=== PATIENT | male | born 1975 | race Caucasian/White ===

== ENCOUNTER → 2016-12-04 | Outpatient (CLI) | payer BC ==
[2016-12-04 08:36] LABS: CHLORIDE,CL 109 mmol/L (98-110); SODIUM,NA 143 mmol/L (136-146)
== END ==
LOC: MW.CHIM 07:39
PROVIDERS: ATTEND Internal Medicine
DX: K85.90 Acute pancreatitis without necrosis or infection, unspecified (principal)
CPT/HCPCS: 36415; 80053; 82150

== ENCOUNTER 2017-04-08 20:27 | Emergency (ER) | payer BC ==
[2017-04-08] MEDS ORDERED: Sodium Chloride 0.9% 2.5 ML Syringe FLUSH PRN (20:38)
[2017-04-08] MEDS ORDERED: Sodium Chloride 0.9% 10 ML Syringe FLUSH PRN (20:38)
[2017-04-08] MEDS ORDERED: Sodium Chloride 0.9% 1,000 ML IV ONE (20:39)
--- NOTE | 2017-04-08 20:41 | EDM.PDOC ---
ED HPI GENERAL MEDICAL PROBLEM - General Chief Complaint: General Stated Complaint: HEADACHE Time Seen by Provider: 04/08/17 20:40 Source of Information: Reports: Patient, Family History Limitations: Reports: No Limitations - History of Present Illness INITIAL COMMENTS - FREE TEXT/NARRATIVE: HISTORY AND PHYSICAL: []41-year-old male presenting with history of headache for the last week it has been intermittent History of Present Illness: [Patient started with headache 1 week ago was better for a couple of days now gradually has worsened over the last several days Complains of pain jumping from his neck to his shoulders to 4 head He has photophobia Rating his pain 7/10] is stating patient has been working 18-20 hours daily for the last 3 weeks. He has been highly stressed. Review of Systems: As per history of present illness and below otherwise all systems reviewed and negative. Past medical history: As per history of present illness and as reviewed below otherwise noncontributory. Surgical history: As per history of present illness and as reviewed below otherwise noncontributory. Social history: No reported history of drug or alcohol abuse. Family history: As per history of present illness and as reviewed below otherwise noncontributory. Physical exam: Alert and oriented male looks to be in distress. Answers questions in full sentences. Appropriate responses were noted to questions. HEENT: Atraumatic, normocehpalic, pupils reactive, negative for conjunctival pallor or scleral icterus, mucous membranes moist, throat clear, neck supple, nontender, trachea midline. Sclerae erythematous. Lungs: Clear to auscultation, breath sounds equal bilaterally, chest non tender. Heart: S1S2, regular, negative for clicks, rubs, or JVD. Abdomen: Soft, nondistended, nontender. Negative for masses or hepatossplenmegaly. Negative for costovertebral tenderness. Pelvis: Stable nontender. Genitourinary: Deferred. Rectal: Deferred Extremities: Atraumatic, negative for cords or calf pain. Neurovascular unremarkable. Neuro: Awake, alert, oriented. Cranial nerves II through XII unremarkable. Cerebellum unremarkable. Motor and sensory unremarkable throughout. Exam nonfocal. Diagnostics: [CBC CMP head CT UA amylase lipase lactic acid urine drug screen TSH] Therapeutics: [] Impression: []muscle contraction headaches stress Plan: [Home and rest Note for work to stay home until .] Definitive disposition and diagnosis as appropriate pending reevaluation and review of above. Onset: Gradual Duration: Week(s): (1) Location: Reports: Head Quality: Reports: Ache Severity: Severe Improves with: Reports: None Worsens with: Reports: Other (Working long hours) Associated Symptoms: Reports: No Other Symptoms Treatments [employer]PER[employer]OR: Reports: Other (see below) (Ibuprofen yesterday) headache Pain Score (Numeric/FACES): 6 - Related Data Allergies Allergy/AdvReac Type Severity Reaction Status Date / Time No Known Allergies Allergy Verified 04/08/17 20:31 Home Meds: Home Meds . [No Known Home Meds] 10/02/16 [History] Past Medical History - Past Health History Medical/Surgical History: Denies Medical/Surgical History Respiratory History: Reports: Sleep Apnea Other Respiratory History: uses CPAP Gastrointestinal History: Reports: Pancreatitis Musculoskeletal History: Reports: Arthritis - Past Surgical History GI Surgical History: Reports: Hernia, Inguinal Social & Family History - Family History Family Medical History: Noncontributory - Tobacco Use Smoking Status *Q: Former Smoker Years of Tobacco use: 10 Used Tobacco, but Quit: No Second Hand Smoke Exposure: Yes - Caffeine Use Caffeine Use: Reports: Coffee, Soda, Tea - Alcohol Use Days Per Week of Alcohol Use: 2 Number of Drinks Per Day: 4 Total Drinks Per Week: 8 - Recreational Drug Use Recreational Drug Use: No ED ROS GENERAL - Review of Systems Review Of Systems: ROS reveals no pertinent complaints other than HPI. ED EXAM, GENERAL - Physical Exam Exam: See Below (see dictation) Course - Vital Signs Last Recorded V/S: Last Vital Signs Temp 37.1 C 04/08/17 20:32 Pulse 84 04/08/17 21:08 Resp 17 04/08/17 21:08 BP 136/75 04/08/17 21:08 Pulse Ox 94 L 04/08/17 21:08 - Orders/Labs/Meds Orders: Active Orders 24 hr Category Date Time Status Blood Glucose Check, Bedside [RC] ONETIME Care 04/08/17 20:41 Active Head wo Cont [CT] Stat Exams 04/08/17 20:39 Taken DRUG SCREEN, URINE [URCHEM] Stat Lab 04/08/17 20:39 Uncollected Sodium Chloride 0.9% [Saline Flush] Med 04/08/17 20:38 Active 10 ml FLUSH ASDIRECTED PRN Sodium Chloride 0.9% [Saline Flush] Med 04/08/17 20:38 Active 2.5 ml FLUSH ASDIRECTED PRN Saline Lock Insert [OM.PC] Stat Oth 04/08/17 20:38 Ordered Medication Orders Sodium Chloride (Saline Flush) 10 ml FLUSH ASDIRECTED PRN PRN Reason: Keep Vein Open Last Admin: 04/08/17 21:05 Dose: 10 ml Sodium Chloride (Saline Flush) 2.5 ml FLUSH ASDIRECTED PRN PRN Reason: Keep Vein Open Last Admin: 04/08/17 21:06 Dose: 2.5 ml Labs: Laboratory Tests 04/08/17 04/08/17 04/08/17 Range/Units 20:44 20:44 20:44 WBC 5.26 (4.0-11.0) K/uL RBC 5.17 (4.50-5.90) M/uL Hgb 14.7 (13.0-17.0) g/dL Hct 42.9 (38.0-50.0) % MCV 83.0 (80.0-98.0) fL MCH 28.4 (27.0-32.0) pg MCHC 34.3 (31.0-37.0) g/dL RDW Std Deviation 40.1 (28.0-62.0) fl RDW Coeff of Aram 13 (11.0-15.0) % Plt Count 225 (150-400) K/uL MPV 9.60 (7.40-12.00) fL Neut % (Auto) 37.7 L (48.0-80.0) % Lymph % (Auto) 47.5 H (16.0-40.0) % [place] % (Auto) 10.6 (0.0-15.0) % Eos % (Auto) 3.4 (0.0-7.0) % Baso % (Auto) 0.8 (0.0-1.5) % Neut # (Auto) 2.0 (1.4-5.7) K/uL Lymph # (Auto) 2.5 H (0.6-2.4) K/uL [place] # (Auto) 0.6 (0.0-0.8) K/uL Eos # (Auto) 0.2 (0.0-0.7) K/uL Baso # (Auto) 0.0 (0.0-0.1) K/uL Nucleated RBC % 0.0 /100WBC Nucleated RBCs # 0 K/uL Lactate 1.0 (0.20-2.00) mmol/L Sodium 143 (136-146) mmol/L Potassium 4.0 (3.5-5.1) mmol/L Chloride 108 (98-110) mmol/L Carbon Dioxide 28 (21-31) mmol/L BUN 20 (6.0-23.0) mg/dL Creatinine 0.9 (0.6-1.5) mg/dL Est Cr Clr Drug Dosing 132.61 mL/min Estimated GFR (MDRD) > 60.0 ml/min Glucose 109 (60-110) mg/dL POC Glucose (60-110) mg/dL Calcium 9.0 (8.8-10.8) mg/dL Total Bilirubin 0.5 (0.1-1.5) mg/dL AST 22 (5-40) IU/L ALT 55 H (8-54) IU/L Alkaline Phosphatase 52 (40-150) Total Protein 7.0 (6.0-8.0) g/dL Albumin 4.1 (3.5-5.0) g/dL Globulin 2.9 (2.0-3.5) g/dL Albumin/Globulin Ratio 1.4 (1.3-2.8) Amylase (10-90) U/L Lipase (7-80) U/L TSH 3rd Generation 1.11 (0.47-5.0) uIU/mL 04/08/17 04/08/17 Range/Units 20:44 20:44 WBC (4.0-11.0) K/uL RBC (4.50-5.90) M/uL Hgb (13.0-17.0) g/dL Hct (38.0-50.0) % MCV (80.0-98.0) fL MCH (27.0-32.0) pg MCHC (31.0-37.0) g/dL RDW Std Deviation (28.0-62.0) fl RDW Coeff of Aram (11.0-15.0) % Plt Count (150-400) K/uL MPV (7.40-12.00) fL Neut % (Auto) (48.0-80.0) % Lymph % (Auto) (16.0-40.0) % Cand[place] % (Auto) (0.0-15.0) % Eos % (Auto) (0.0-7.0) % Baso % (Auto) (0.0-1.5) % Neut # (Auto) (1.4-5.7) K/uL Lymph # (Auto) (0.6-2.4) K/uL [place] # (Auto) (0.0-0.8) K/uL Eos # (Auto) (0.0-0.7) K/uL Baso # (Auto) (0.0-0.1) K/uL Nucleated RBC % /100WBC Nucleated RBCs # K/uL Lactate (0.20-2.00) mmol/L Sodium (136-146) mmol/L Potassium (3.5-5.1) mmol/L Chloride (98-110) mmol/L Carbon Dioxide (21-31) mmol/L BUN (6.0-23.0) mg/dL Creatinine (0.6-1.5) mg/dL Est Cr Clr Drug Dosing mL/min Estimated GFR (MDRD) ml/min Glucose (60-110) mg/dL POC Glucose 102 (60-110) mg/dL Calcium (8.8-10.8) mg/dL Total Bilirubin (0.1-1.5) mg/dL AST (5-40) IU/L ALT (8-54) IU/L Alkaline Phosphatase (40-150) Total Protein (6.0-8.0) g/dL Albumin (3.5-5.0) g/dL Globulin (2.0-3.5) g/dL Albumin/Globulin Ratio (1.3-2.8) Amylase 90 (10-90) U/L Lipase 79 (7-80) U/L TSH 3rd Generation (0.47-5.0) uIU/mL Meds: Medications Generic Name Dose Route Start Last Admin Trade Name Freq PRN Reason Stop Dose Admin Sodium Chloride 10 ml 04/08/17 20:38 04/08/17 21:05 Saline Flush FLUSH 10 ml ASDIRECTED PRN Administration Keep Vein Open Sodium Chloride 2.5 ml 04/08/17 20:38 04/08/17 21:06 Saline Flush FLUSH 2.5 ml ASDIRECTED PRN Administration Keep Vein Open Discontinued Medications Generic Name Dose Route Start Last Admin Trade Name Juan PRN Reason Stop Dose Admin Al Hydroxide/Mg Hydroxide 15 0 ml 04/08/17 21:26 04/08/17 21:29 ml/ Metoclopramide HCl 5 mg/ PO 04/08/17 21:27 25 each Lidocaine HCl 5 ml ONETIME ONE Administration Sodium Chloride 1,000 mls @ 999 mls/hr 04/08/17 20:39 04/08/17 21:03 Normal Saline IV 04/08/17 21:39 999 mls/hr STAT ONE Administration Morphine Sulfate 2 mg 04/08/17 20:50 04/08/17 21:05 Morphine IV 04/08/17 20:51 2 mg ONETIME ONE Administration Ondansetron HCl 4 mg 04/08/17 20:50 04/08/17 21:04 Zofran IVPUSH 04/08/17 20:51 4 mg ONETIME ONE Administration Departure - Departure Time of Disposition: 21:53 Disposition: Home, Self-Care 01 Condition: Good Clinical Impression: Muscle contraction headache - Discharge Information Forms: ED Department Discharge Additional Instructions: The following information is given to patients seen in the emergency department who are being discharged to home. This information is to outline your options for follow-up care. We provide all patients seen in our emergency department with a follow-up referral. The need for follow-up, as well as the timing and circumstances, are variable depending upon the specifics of your emergency department visit. If you don't have a primary care physician on staff, we will provide you with a referral. We always advise you to contact your personal physician following an emergency department visit to inform them of the circumstance of the visit and for follow-up with them and/or the need for any referrals to a consulting specialist. The emergency department will also refer you to a specialist when appropriate. This referral assures that you have the opportunity for followup care with a specialist. All of these measure are taken in an effort to provide you with optimal care, which includes your followup. Under all circumstances we always encourage you to contact your private physician who remains a resource for coordinating your care. When calling for followup care, please make the office aware that this follow-up is from your recent emergency room visit. If for any reason you are refused follow-up, please contact the [facility] emergency department at and asked to speak to the emergency department charge nurse. Home and rest A work note has been signed to be off work until the - My Orders Last 24 Hours: My Active Orders 04/08/17 20:38 Sodium Chloride 0.9% [Saline Flush] 10 ml FLUSH ASDIRECTED PRN Sodium Chloride 0.9% [Saline Flush] 2.5 ml FLUSH ASDIRECTED PRN Saline Lock Insert [OM.PC] Stat 04/08/17 20:39 Head wo Cont [CT] Stat DRUG SCREEN, URINE [URCHEM] Stat 04/08/17 20:41 Blood Glucose Check, Bedside [RC] ONETIME - Assessment/Plan Last 24 Hours: My Active Orders 04/08/17 20:38 Sodium Chloride 0.9% [Saline Flush] 10 ml FLUSH ASDIRECTED PRN Sodium Chloride 0.9% [Saline Flush] 2.5 ml FLUSH ASDIRECTED PRN Saline Lock Insert [OM.PC] Stat 04/08/17 20:39 Head wo Cont [CT] Stat DRUG SCREEN, URINE [URCHEM] Stat 04/08/17 20:41 Blood Glucose Check, Bedside [RC] ONETIME
[2017-04-08] MEDS ORDERED: Ondansetron 4 MG/2 ML SDV IVPUSH ONE (20:50)
[2017-04-08] MEDS ORDERED: Morphine 10 MG/ML Syringe IV ONE (20:50)
[2017-04-08 21:14] LABS: CHLORIDE,CL 108 mmol/L (98-110); SODIUM,NA 143 mmol/L (136-146)
[2017-04-08] MEDS ORDERED: Alum Hydrox/Mag Hydrox/Simeth 15 ML, Metoclopramide 5 MG, Lidocaine 2% 5 ML PO ONE ×3 (21:26)
[2017-04-08 22:13] VITALS: BP 124/70
--- NOTE | 2017-04-09 13:10 | CT ---
EXAM DATE: 04/08/17 PATIENT'S AGE: 41 Patient: LACHO MCKENNA Facility: [place], [place] Site . Site : [id number] Study: CT Head WO CONT [id number]/[id number] 9:08:02 PM Ordering Physician: Doctor Hernandez Final Report: HISTORY: Headache for 3 days. TECHNIQUE: The head was scanned in the axial plane at 3 mm intervals without IV contrast. Reconstructed bone windows obtained as well as sagittal and coronal reconstructions. FINDINGS: The visualized paranasal sinuses and mastoid air cells are well aerated. The calvarium is intact. The ventricles and sulci are normal size, shape and position. No intra-axial mass, edema or midline shift is identified. No extra- axial fluid collections are seen. Pineda-white differentiation is preserved. IMPRESSION: No acute intracranial pathology or bleed. Dictated by Nanci Wright MD @ 04/08/2017 9:50:09 PM Dictated by: Nanci Wright MD @ 04/08/2017 21:50:13 (Electronic Signature) Report Signed by Proxy. [facility]
== END 2017-04-08 22:10 | disposition home or self-care (01) ==
LOC: MW.ED 20:27
DX: G44.209 Tension-type headache, unspecified, not intractable (principal); Z87.891 Personal history of nicotine dependence
CPT/HCPCS: 36415; 70450; 80053; 82150; 82962; 83605; 83690; 84443; 85025; 96361; 96374; 96375; 99284; A9270; J2270; J2405; J7040

== ENCOUNTER 2021-04-17 17:46 | Emergency (ER) | payer MEDICAID ==
[2021-04-17] MEDS ORDERED: Alum Hydrox/Mag Hydrox/Simeth 15 ML, Lidocaine 2% 5 ML PO ONE ×2 (17:53)
--- NOTE | 2021-04-17 17:57 | EDM.PDOC ---
ED HPI GENERAL MEDICAL PROBLEM - General Chief Complaint: Chest Pain Stated Complaint: CHEST PAIN Time Seen by Provider: 04/17/21 17:52 - History of Present Illness INITIAL COMMENTS - FREE TEXT/NARRATIVE: 46-year male presents to the emergency department complaining of chest pain and abdominal pain starting about 30 minutes prior to arrival. Patient states that he had some food including cottage cheese and then started having the significant pain. The pain is in his stomach and a burning type sensation and goes to his chest. He states he was diaphoretic and short of breath as well. Patient states he has had the symptoms perhaps 4 times in the past over the last several weeks. Patient denies any fevers or chills. Patient with 2 episodes of vomiting. No diarrhea. Patient denies known lactose intolerance. Patient states that last stress test was 2016 and normal. Pain is worse when he takes a deep breath in. There is no history of blood clots. No unilateral leg swelling. No recent travel or injury or cancer or surgery. No known exacerbating relieving factors of this moderate to severe pain. Patient did receive Zofran and fentanyl by EMS chest/abdomen Pain Score (Numeric/FACES): 6 - Related Data Allergies Allergy/AdvReac Type Severity Reaction Status Date / Time No Known Allergies Allergy Verified 04/17/21 17:49 Home Meds: Home Meds metFORMIN [Glucophage XR] 1,000 mg PO BID 04/17/21 [History] Past Medical History - Past Health History Medical/Surgical History: Denies Medical/Surgical History HEENT History: Reports: None Cardiovascular History: Reports: None Respiratory History: Reports: Sleep Apnea Other Respiratory History: uses CPAP Gastrointestinal History: Reports: Pancreatitis Genitourinary History: Reports: None Musculoskeletal History: Reports: Arthritis Neurological History: Reports: None Psychiatric History: Reports: None Endocrine/Metabolic History: Reports: None Hematologic History: Reports: None Immunologic History: Reports: None Oncologic (Cancer) History: Reports: None Dermatologic History: Reports: None - Infectious Disease History Infectious Disease History: Reports: None - Past Surgical History Head Surgeries/Procedures: Reports: None HEENT Surgical History: Reports: None Cardiovascular Surgical History: Reports: None Respiratory Surgical History: Reports: None GI Surgical History: Reports: Hernia, Inguinal Male Surgical History: Reports: None Endocrine Surgical History: Reports: None Neurological Surgical History: Reports: None Musculoskeletal Surgical History: Reports: None Oncologic Surgical History: Reports: None Dermatological Surgical History: Reports: None Social & Family History - Family History Family Medical History: No Pertinent Family History - Tobacco Use Tobacco Use Status *Q: Never Tobacco User Second Hand Smoke Exposure: No - Caffeine Use Caffeine Use: Reports: None - Recreational Drug Use Recreational Drug Use: No ED ROS GENERAL - Review of Systems Review Of Systems: Comprehensive ROS is negative, except as noted in HPI. Free Text/Narrative/Comment: Constitutional: No fevers, chills, Respiratory: No productive sputum cough Cardiovascular: + Chest pain, Gastrointestinal: diarrhea Genitourinary: No pain with urination. No frequency Rey/Lymph: Negative for bruising tendency, Musculoskeletal: no decreased range of motion, trauma Integumentary: No rash, bruising Neurologic: No numbness or weakness Psychiatric: No anxiety, depression ED EXAM, GENERAL - Physical Exam Exam: See Below Free Text/Narrative:: CONSTITUTIONAL: well appearing in no acute distress SKIN: Warm, dry, and intact without rash HENT: Normocephalic, atraumatic, PULMONARY: clear to ausculation bilaterally. No rales, rhonchi, wheezing CARDIOVASCULAR: regular rate, No murmur, rubs, or gallops GASTROINTESTINAL: Diffuse mild tenderness. No guarding or rebound or rigidity NEUROLOGIC: normal speech, II-XII intact. light touch/5/5 power equal and symmetric in upper and lower extremities without deficit. GCSL 15 MUSCULOSKELETAL: no gross deformities, atraumatic PSYCHIATRIC: normal mood and affect #1 Interpretation EKG Date: 04/17/21 Time: 18:00 EKG Interpretation Comments: 68, normal sinus rhythm, Q-wave in lead III, nonspecific ST/T findings. #2 Interpretation EKG Date: 04/17/21 (n) EKG Interpretation Comments: Wavy baseline. 80, normal sinus rhythm, precordial leads with nonspecific ST/T findings Course - Vital Signs Text/Narrative:: Patient presents to the emergency department as outlined above. Patient has evidence of acute pancreatitis. Is also elevation in LFTs. Patient does not drink alcohol and had similar presentation in the past for which his gallbladder had already been taken out. Patient could certainly have a stricture or retained stone and may need ERCP. At minimum he needs GI consultation and continue treatment and work-up. We do not have GI here and the patient be transferred for higher level of care. Upon obtaining laboratory testing the tra nsfer was initiated. I do not want to delay transfer with imaging and any require imaging to be done when the patient's gets to the accepting facility. Patient otherwise looks much better after IV fluids and antibiotics and pain medications and at this has a soft abdomen without signs of surgical abdomen Last Recorded V/S: Last Vital Signs Temp 36.1 C 04/17/21 17:47 Pulse 82 04/17/21 20:04 Resp 16 04/17/21 20:04 BP 117/83 04/17/21 20:04 Pulse Ox 97 04/17/21 20:04 - Orders/Labs/Meds Orders: Active Orders 24 hr Category Date Time Status EKG 12 Lead [EKG Documentation Completion] [RC] STAT Care 04/17/21 17:53 Active EKG 12 Lead [EKG Documentation Completion] [RC] STAT Care 04/17/21 18:34 Active Labs: Laboratory Tests 04/17/21 04/17/21 04/17/21 Range/Units 17:40 17:40 17:40 WBC 3.88 L (4.0-11.0) K/uL RBC 5.40 (4.50-5.90) M/uL Hgb 15.7 (13.0-17.0) g/dL Hct 46.0 (38.0-50.0) % MCV 85.2 (80.0-98.0) fL MCH 29.1 (27.0-32.0) pg MCHC 34.1 (31.0-37.0) g/dL RDW Std Deviation 39.2 (28.0-62.0) fl RDW Coeff of Aram 13 (11.0-15.0) % Plt Count 224 (150-400) K/uL MPV 9.90 (7.40-12.00) fL Neut % (Auto) 54.1 (48.0-80.0) % Lymph % (Auto) 29.9 (16.0-40.0) % Ashley % (Auto) 14.4 (0.0-15.0) % Eos % (Auto) 1.3 (0.0-7.0) % Baso % (Auto) 0.3 (0.0-1.5) % Neut # (Auto) 2.1 (1.4-5.7) K/uL Lymph # (Auto) 1.2 (0.6-2.4) K/uL Ashley # (Auto) 0.6 (0.0-0.8) K/uL Eos # (Auto) 0.1 (0.0-0.7) K/uL Baso # (Auto) 0.0 (0.0-0.1) K/uL Nucleated RBC % 0.0 /100WBC Nucleated RBCs # 0 K/uL D-Dimer, Quantitative 0.74 H (0.0-0.50) mg/L FEU Sodium 139 (136-148) mmol/L Potassium 4.1 (3.5-5.1) mmol/L Chloride 101 (98-107) mmol/L Carbon Dioxide 30.6 (21.0-32.0) mmol/L BUN 15 (7.0-18.0) mg/dL Creatinine 1.0 (0.8-1.3) mg/dL Est Cr Clr Drug Dosing 113.32 mL/min Estimated GFR (MDRD) > 60.0 ml/min Glucose 171 H (74-106) mg/dL Calcium 9.3 (8.5-10.1) mg/dL Total Bilirubin 1.1 H (0.2-1.0) mg/dL AST 687 H (15-37) IU/L ALT 1133 H (14-63) IU/L Alkaline Phosphatase 118 H (46-116) U/L Troponin I < 0.050 (0.000-0.056) ng/mL Total Protein 7.4 (6.4-8.2) g/dL Albumin 4.3 (3.4-5.0) g/dL Globulin 3.1 (2.6-4.0) g/dL Albumin/Globulin Ratio 1.4 (0.9-1.6) Lipase 10998 H (73-393) U/L Urine Color Urine Appearance Urine pH (5.0-8.0) Ur Specific [place] (1.001-1.035) Urine Protein (NEGATIVE) mg/dL Urine Glucose (UA) (NEGATIVE) mg/dL Urine Ketones (NEGATIVE) mg/dL Urine Occult Blood (NEGATIVE) Urine Nitrite (NEGATIVE) Urine Bilirubin (NEGATIVE) Urine Urobilinogen (<2.0) EU/dL Ur Leukocyte Esterase (NEGATIVE) Urine RBC (0-2/HPF) Urine WBC (0-5/HPF) Ur Epithelial Cells (NONE-FEW) Amorphous Sediment (NEGATIVE) Urine Bacteria (NEGATIVE) Urine Mucus (NONE-MOD) 04/17/21 Range/Units 18:35 WBC (4.0-11.0) K/uL RBC (4.50-5.90) M/uL Hgb (13.0-17.0) g/dL Hct (38.0-50.0) % MCV (80.0-98.0) fL MCH (27.0-32.0) pg MCHC (31.0-37.0) g/dL RDW Std Deviation (28.0-62.0) fl RDW Coeff of Aram (11.0-15.0) % Plt Count (150-400) K/uL MPV (7.40-12.00) fL Neut % (Auto) (48.0-80.0) % Lymph % (Auto) (16.0-40.0) % Ashley % (Auto) (0.0-15.0) % Eos % (Auto) (0.0-7.0) % Baso % (Auto) (0.0-1.5) % Neut # (Auto) (1.4-5.7) K/uL Lymph # (Auto) (0.6-2.4) K/uL Ashley # (Auto) (0.0-0.8) K/uL Eos # (Auto) (0.0-0.7) K/uL Baso # (Auto) (0.0-0.1) K/uL Nucleated RBC % /100WBC Nucleated RBCs # K/uL D-Dimer, Quantitative (0.0-0.50) mg/L FEU Sodium (136-148) mmol/L Potassium (3.5-5.1) mmol/L Chloride (98-107) mmol/L Carbon Dioxide (21.0-32.0) mmol/L BUN (7.0-18.0) mg/dL Creatinine (0.8-1.3) mg/dL Est Cr Clr Drug Dosing mL/min Estimated GFR (MDRD) ml/min Glucose (74-106) mg/dL Calcium (8.5-10.1) mg/dL Total Bilirubin (0.2-1.0) mg/dL AST (15-37) IU/L ALT (14-63) IU/L Alkaline Phosphatase (46-116) U/L Troponin I (0.000-0.056) ng/mL Total Protein (6.4-8.2) g/dL Albumin (3.4-5.0) g/dL Globulin (2.6-4.0) g/dL Albumin/Globulin Ratio (0.9-1.6) Lipase (73-393) U/L Urine Color YELLOW Urine Appearance CLOUDY Urine pH 7.5 (5.0-8.0) Ur Specific [place] 1.020 (1.001-1.035) Urine Protein TRACE H (NEGATIVE) mg/dL Urine Glucose (UA) NEGATIVE (NEGATIVE) mg/dL Urine Ketones NEGATIVE (NEGATIVE) mg/dL Urine Occult Blood NEGATIVE (NEGATIVE) Urine Nitrite NEGATIVE (NEGATIVE) Urine Bilirubin NEGATIVE (NEGATIVE) Urine Urobilinogen 1.0 (<2.0) EU/dL Ur Leukocyte Esterase NEGATIVE (NEGATIVE) Urine RBC NONE SEEN (0-2/HPF) Urine WBC 0-1 (0-5/HPF) Ur Epithelial Cells RARE (NONE-FEW) Amorphous Sediment LIGHT (NEGATIVE) Urine Bacteria 2+ H (NEGATIVE) Urine Mucus LIGHT (NONE-MOD) Meds: Medications Discontinued Medications Generic Name Dose Route Start Last Admin Trade Name Freq PRN Reason Stop Dose Admin Al Hydroxide/Mg Hydroxide 15 0 ml 04/17/21 17:53 04/17/21 18:05 ml/ Lidocaine HCl 5 ml PO 04/17/21 17:54 1 each ONETIME ONE Administration Fentanyl 50 mcg 04/17/21 18:34 04/17/21 18:40 Fentanyl 50 Mcg/Ml Sdv IVPUSH 04/17/21 18:35 50 mcg ONETIME ONE Administration Sodium Chloride 1,000 mls @ 1,000 mls/min 04/17/21 18:38 04/17/21 18:40 Normal Saline IV 04/17/21 18:39 1,000 mls/min .Bolus ONE Administration Piperacillin Sod/Tazobactam 50 mls @ 100 mls/hr 04/17/21 18:58 04/17/21 19:13 Sod 3.375 gm/ Sodium Chloride IV 04/17/21 19:27 100 mls/hr ONETIME ONE Administration Metoclopramide HCl 10 mg 04/17/21 18:39 04/17/21 18:42 Metoclopramide 10 Mg/2 Ml Sdv IVPUSH 04/17/21 18:40 10 mg ONETIME ONE Administration Sodium Chloride 1,000 ml 04/17/21 18:40 04/17/21 18:43 Sodium Chloride 0.9% 10 Ml Sdv IV 04/17/21 18:41 Not Given NOW STA Departure - Departure Time of Disposition: 20:40 [facility]position: [facility] Condition: Fair Clinical Impression: Acute pancreatitis - Discharge Information Referrals: Alaina Damon MD [Primary Care Provider] - Forms: ED Department Discharge Sepsis Event Note (ED) - Evaluation Sepsis Screening Result: No Definite Risk - Focused Exam Vital Signs: Vital Signs Temp Pulse Resp BP Pulse Ox 04/17/21 20:04 82 16 117/83 97 04/17/21 19:17 72 16 117/73 98 04/17/21 18:34 68 18 161/97 H 98 04/17/21 17:47 36.1 C 66 20 171/98 H 100 - My Orders Last 24 Hours: My Active Orders 04/17/21 17:53 EKG 12 Lead [EKG Documentation Completion] [RC] STAT 04/17/21 18:34 EKG 12 Lead [EKG Documentation Completion] [RC] STAT - Assessment/Plan Last 24 Hours: My Active Orders 04/17/21 17:53 EKG 12 Lead [EKG Documentation Completion] [RC] STAT 04/17/21 18:34 EKG 12 Lead [EKG Documentation Completion] [RC] STAT
[2021-04-17 18:32] LABS: BLOOD UREA NITROGEN,BUN 15 mg/dL (7.0-18.0); CARBON DIOXIDE,CO2 30.6 mmol/L (21.0-32.0); CHLORIDE,CL 101 mmol/L (98-107); GLUCOSE RANDOM 171 mg/dL (74-106); POTASSIUM,K 4.1 mmol/L (3.5-5.1); SODIUM,NA 139 mmol/L (136-148)
[2021-04-17] MEDS ORDERED: fentaNYL 50 MCG/ML SDV IVPUSH ONE (18:34)
[2021-04-17] MEDS ORDERED: Sodium Chloride 0.9% 1,000 ML IV ONE (18:38)
[2021-04-17] MEDS ORDERED: Metoclopramide 10 MG/2 ML SDV IVPUSH ONE (18:39)
[2021-04-17] MEDS ORDERED: Sodium Chloride 0.9% 10 ML SDV IV STA (18:40)
[2021-04-17] MEDS ORDERED: Piperacillin/Tazobactam 3.375 GM in Sodium Chloride 0.9% 50 ML IV ONE (18:58)
[2021-04-17 20:11] LABS: LIPASE 47366 U/L (73-393)
[2021-04-17 21:26] VITALS: BP 130/72; PULSE 84
== END 2021-04-17 21:20 ==
LOC: MW.ED 17:46
DX: K85.90 Acute pancreatitis without necrosis or infection, unspecified (principal)
CPT/HCPCS: 36415; 80053; 81001; 83690; 84484; 85025; 85379; 93005; 96365; 96375; 99285; A9270; J2543; J2765; J3010; J7030

== ENCOUNTER 2021-07-31 12:15 | Observation (INO) | payer MEDICAID ==
[2021-07-31] MEDS ORDERED: Sodium Chloride 0.9% 500 ML IV ONE (12:50)
[2021-07-31] MEDS ORDERED: Sodium Chloride 0.9% 10 ML Syringe FLUSH PRN (12:50)
[2021-07-31] MEDS ORDERED: Sodium Chloride 0.9% 2.5 ML Syringe FLUSH PRN (12:50)
--- NOTE | 2021-07-31 12:57 | EDM.PDOC ---
ED HPI GENERAL MEDICAL PROBLEM - General Chief Complaint: Syncope Stated Complaint: BLACKED OUT Time Seen by Provider: 07/31/21 12:37 - History of Present Illness INITIAL COMMENTS - FREE TEXT/NARRATIVE: Patient presents for syncope. Please patient was playing outside. It was cold out and he had a hoodie on. He was sweating a little bit because of the clothing but otherwise is doing fine. Patient states that next his neighbor was seeing if he was doing okay because he was laying in the grass. Patient denies any premonitory signs or symptoms of chest pain shortness of breath. No recent fevers chills or infectious complaints. Patient son is sick but he is not having symptoms. No vomiting or diarrhea red or black stools. When the patient woke up he said he had a moderate headache. No slurred speech or double vision or arm/leg numbness/weakness. Patient states no history of PE. No leg swelling. No recent travel or injury or cancer or surgery. Patient denies any traumatic injury that occurred during this event today. No sudden in family or history of arrhythmia Headache Pain Score (Numeric/FACES): 8 - Related Data Allergies Allergy/AdvReac Type Severity Reaction Status Date / Time No Known Allergies Allergy Verified 07/31/21 12:24 Home Meds: Home Meds metFORMIN [Glucophage XR] 1,000 mg PO BID 04/17/21 [History] Past Medical History - Past Health History Medical/Surgical History: Denies Medical/Surgical History HEENT History: Reports: Other (See Below) Other HEENT History: wears glasses Cardiovascular History: Reports: None Respiratory History: Reports: Sleep Apnea Other Respiratory History: uses CPAP Gastrointestinal History: Reports: Pancreatitis Genitourinary History: Reports: None Musculoskeletal History: Reports: Arthritis Neurological History: Reports: None Psychiatric History: Reports: None Endocrine/Metabolic History: Reports: None Hematologic History: Reports: None Immunologic History: Reports: None Oncologic (Cancer) History: Reports: None Dermatologic History: Reports: None - Infectious Disease History Infectious Disease History: Reports: None - Past Surgical History Head Surgeries/Procedures: Reports: None HEENT Surgical History: Reports: None Cardiovascular Surgical History: Reports: None Respiratory Surgical History: Reports: None GI Surgical History: Reports: Cholecystectomy, Hernia, Inguinal Male Surgical History: Reports: None Endocrine Surgical History: Reports: None Neurological Surgical History: Reports: None Musculoskeletal Surgical History: Reports: None Oncologic Surgical History: Reports: None Dermatological Surgical History: Reports: None Social & Family History - Family History Family Medical History: No Pertinent Family History - Tobacco Use Tobacco Use Status *Q: Former Tobacco User Used Tobacco, but Quit: Yes Month/Year Tobacco Last Used: 03/2021 - Caffeine Use Caffeine Use: Reports: None - Recreational Drug Use Recreational Drug Use: No ED ROS GENERAL - Review of Systems Review Of Systems: Comprehensive ROS is negative, except as noted in HPI. ED EXAM, GENERAL - Physical Exam Exam: See Below Free Text/Narrative:: CONSTITUTIONAL: well appearing in no acute distress SKIN: Warm, dry, and intact without rash HENT: Normocephalic, atraumatic, PULMONARY: clear to ausculation bilaterally. No rales, rhonchi, wheezing CARDIOVASCULAR: regular rate, No murmur, rubs, or gallops GASTROINTESTINAL: soft, nondistended, nontender NEUROLOGIC: normal speech, II-XII intact. light touch/5/5 power equal and symmetric in upper and lower extremities without deficit MUSCULOSKELETAL: no gross deformities, atraumatic PSYCHIATRIC: normal mood and affect #1 Interpretation Time: 12:30 EKG Interpretation Comments: 67, normal sinus rhythm, nonspecific ST/T changesj. RSR' in V1 and V2 with T wave inversion in V1 Course - Vital Signs Last Recorded V/S: Last Vital Signs Temp 36.6 C 07/31/21 12:25 Pulse 68 07/31/21 12:25 Resp 16 07/31/21 12:25 BP 139/79 07/31/21 12:25 Pulse Ox 96 07/31/21 12:25 - Orders/Labs/Meds Orders: Active Orders 24 hr Category Date Time Status Cardiac Monitoring [RC] . DIRECTED Care 07/31/21 12:50 Active CORONAVIRUS COVID-19 LUCA [MOLEC] Stat Lab 07/31/21 12:50 Ordered Sodium Chloride 0.9% [Saline Flush] Med 07/31/21 12:50 Active 10 ml FLUSH ASDIRECTED PRN Sodium Chloride 0.9% [Saline Flush] Med 07/31/21 12:50 Active 2.5 ml FLUSH ASDIRECTED PRN Saline Lock Insert [OM.PC] Stat Oth 07/31/21 12:50 Ordered Medication Orders Sodium Chloride (Sodium Chloride 0.9% 10 Ml Syringe) 10 ml FLUSH ASDIRECTED PRN PRN Reason: Keep Vein Open Last Admin: 07/31/21 13:17 Dose: 10 ml Documented by: FRED Sodium Chloride (Sodium Chloride 0.9% 2.5 Ml Syringe) 2.5 ml FLUSH ASDIRECTED PRN PRN Reason: Keep Vein Open Last Admin: 07/31/21 13:18 Dose: 2.5 ml Documented by: FRED Labs: Laboratory Tests 07/31/21 07/31/21 07/31/21 Range/Units 12:31 12:44 12:44 WBC 4.63 (4.0-11.0) K/uL RBC 5.39 (4.50-5.90) M/uL Hgb 15.8 (13.0-17.0) g/dL Hct 45.5 (38.0-50.0) % MCV 84.4 (80.0-98.0) fL MCH 29.3 (27.0-32.0) pg MCHC 34.7 (31.0-37.0) g/dL RDW Std Deviation 40.8 (28.0-62.0) fl RDW Coeff of Aram 13 (11.0-15.0) % Plt Count 209 (150-400) K/uL MPV 9.70 (7.40-12.00) fL Neut % (Auto) 38.9 L (48.0-80.0) % Lymph % (Auto) 45.1 H (16.0-40.0) % [place] % (Auto) 13.0 (0.0-15.0) % Eos % (Auto) 2.6 (0.0-7.0) % Baso % (Auto) 0.4 (0.0-1.5) % Neut # (Auto) 1.8 (1.4-5.7) K/uL Lymph # (Auto) 2.1 (0.6-2.4) K/uL [place] # (Auto) 0.6 (0.0-0.8) K/uL Eos # (Auto) 0.1 (0.0-0.7) K/uL Baso # (Auto) 0.0 (0.0-0.1) K/uL Nucleated RBC % 0.0 /100WBC Nucleated RBCs # 0 K/uL INR D-Dimer, Quantitative (0.0-0.50) mg/L FEU Sodium 138 (136-148) mmol/L Potassium 4.3 (3.5-5.1) mmol/L Chloride 103 (98-107) mmol/L Carbon Dioxide 28.1 (21.0-32.0) mmol/L BUN 18 (7.0-18.0) mg/dL Creatinine 0.9 (0.8-1.3) mg/dL Est Cr Clr Drug Dosing 125.91 mL/min Estimated GFR (MDRD) > 60.0 ml/min Glucose 130 H (74-106) mg/dL POC Glucose 127 H (70-99) mg/dL Calcium 8.4 L (8.5-10.1) mg/dL Total Bilirubin 0.4 (0.2-1.0) mg/dL AST 25 (15-37) IU/L ALT 68 H (14-63) IU/L Alkaline Phosphatase 47 (46-116) U/L Troponin I < 0.050 (0.000-0.056) ng/mL Total Protein 7.7 (6.4-8.2) g/dL Albumin 3.8 (3.4-5.0) g/dL Globulin 3.9 (2.6-4.0) g/dL Albumin/Globulin Ratio 1.0 (0.9-1.6) Lipase 316 (73-393) U/L 07/31/21 07/31/21 Range/Units 12:44 12:44 WBC (4.0-11.0) K/uL RBC (4.50-5.90) M/uL Hgb (13.0-17.0) g/dL Hct (38.0-50.0) % MCV (80.0-98.0) fL MCH (27.0-32.0) pg MCHC (31.0-37.0) g/dL RDW Std Deviation (28.0-62.0) fl RDW Coeff of Aram (11.0-15.0) % Plt Count (150-400) K/uL MPV (7.40-12.00) fL Neut % (Auto) (48.0-80.0) % Lymph % (Auto) (16.0-40.0) % [place] % (Auto) (0.0-15.0) % Eos % (Auto) (0.0-7.0) % Baso % (Auto) (0.0-1.5) % Neut # (Auto) (1.4-5.7) K/uL Lymph # (Auto) (0.6-2.4) K/uL [place] # (Auto) (0.0-0.8) K/uL Eos # (Auto) (0.0-0.7) K/uL Baso # (Auto) (0.0-0.1) K/uL Nucleated RBC % /100WBC Nucleated RBCs # K/uL INR 0.95 D-Dimer, Quantitative 0.19 (0.0-0.50) mg/L FEU Sodium (136-148) mmol/L Potassium (3.5-5.1) mmol/L Chloride (98-107) mmol/L Carbon Dioxide (21.0-32.0) mmol/L BUN (7.0-18.0) mg/dL Creatinine (0.8-1.3) mg/dL Est Cr Clr Drug Dosing mL/min Estimated GFR (MDRD) ml/min Glucose (74-106) mg/dL POC Glucose (70-99) mg/dL Calcium (8.5-10.1) mg/dL Total Bilirubin (0.2-1.0) mg/dL AST (15-37) IU/L ALT (14-63) IU/L Alkaline Phosphatase (46-116) U/L Troponin I (0.000-0.056) ng/mL Total Protein (6.4-8.2) g/dL Albumin (3.4-5.0) g/dL Globulin (2.6-4.0) g/dL Albumin/Globulin Ratio (0.9-1.6) Lipase (73-393) U/L Meds: Medications Generic Name Dose Route Start Last Admin Trade Name Freq PRN Reason Stop Dose Admin Sodium Chloride 10 ml 07/31/21 12:50 07/31/21 13:17 Sodium Chloride 0.9% 10 Ml Syringe FLUSH 10 ml ASDIRECTED PRN Administration Keep Vein Open Sodium Chloride 2.5 ml 07/31/21 12:50 07/31/21 13:18 Sodium Chloride 0.9% 2.5 Ml Syringe FLUSH 2.5 ml ASDIRECTED PRN Administration Keep Vein Open Discontinued Medications Generic Name Dose Route Start Last Admin Trade Name Juan PRN Reason Stop Dose Admin Sodium Chloride 500 mls @ 999 mls/hr 07/31/21 12:50 07/31/21 13:17 Normal Saline IV 07/31/21 13:20 999 mls/hr .BOLUS ONE Administration - Radiology Interpretation Free Text/Narrative:: Differential diagnosis: Dehydration, anemia, dysrhythmia, ACS, subarachnoid hemorrhage, PE, other Patient presents as outlined above. Patient has a concerning story and that he just woke up without any premonitory signs or symptoms of his syncope. He did have significant headache when he woke up. Head CT is negative. Patient with a nonfocal neurologic exam and headache is significantly improved. Literature supports very high sensitivity of subarachnoid hemorrhage of CT scan obtained within 6 hours of head onset. Patient had his headache just prior to arrival and certainly is within the 6-hour window. Nonetheless because of the concerning story I did advise for lumbar puncture to definitively exclude subarachnoid hemorrhage. The patient declines at this time. He is alert and oriented, understands the risks of significant morbidity and mortality, has capacity make his own decisions, is able to discuss illustrating understanding and declines this procedure. I did show the EKG to our wildlife conservationist, Dr. Yo for consideration of possible Brugada's although there is not marked ST elevation. He states it was more like right bundle branch block. The remainder the work-up is effectively unremarkable. Patient be admitted for telemetry monitoring to ensure that there is no dysrhythmia Departure - Departure Time of Disposition: 15:35 Disposition: Refer to Observation Condition: Good Clinical Impression: Syncope - Discharge Information Referrals: Michael Hernandez MD [Primary Care Provider] - Forms: ED Department Discharge Sepsis Event Note (ED) - Evaluation Sepsis Screening Result: No Definite Risk - Focused Exam Vital Signs: Vital Signs Temp Pulse Resp BP Pulse Ox 07/31/21 12:25 36.6 C 68 16 139/79 96 - My Orders Last 24 Hours: My Active Orders 07/31/21 12:50 Cardiac Monitoring [RC] . DIRECTED CORONAVIRUS COVID-19 [facility] [MOLEC] Stat Sodium Chloride 0.9% [Saline Flush] 10 ml FLUSH ASDIRECTED PRN Sodium Chloride 0.9% [Saline Flush] 2.5 ml FLUSH ASDIRECTED PRN Saline Lock Insert [OM.PC] Stat - Assessment/Plan Last 24 Hours: My Active Orders 07/31/21 12:50 Cardiac Monitoring [RC] . DIRECTED CORONAVIRUS COVID-19 LUCA [MOLEC] Stat Sodium Chloride 0.9% [Saline Flush] 10 ml FLUSH ASDIRECTED PRN Sodium Chloride 0.9% [Saline Flush] 2.5 ml FLUSH ASDIRECTED PRN Saline Lock Insert [OM.PC] Stat
[2021-07-31 13:30] LABS: BLOOD UREA NITROGEN,BUN 18 mg/dL (7.0-18.0); CARBON DIOXIDE,CO2 28.1 mmol/L (21.0-32.0); CHLORIDE,CL 103 mmol/L (98-107); GLUCOSE RANDOM 130 mg/dL (74-106); LIPASE 316 U/L (73-393); POTASSIUM,K 4.3 mmol/L (3.5-5.1); SODIUM,NA 138 mmol/L (136-148)
--- NOTE | 2021-07-31 13:42 | CT ---
INDICATION: Syncope and headache COMPARISON: April 08, 2017 TECHNIQUE: CT examination of the head was performed as axial sections without intravenous contrast. Images were obtained from the vertex of the skull through the skull base. Please note that all CT scans at this facility use dose modulation, iterative reconstruction, and/or weight-based dosing when appropriate to reduce radiation dose to as low as reasonably achievable. FINDINGS: The brain shows no sign of mass lesion, mass effect, hemorrhage, or edema. The ventricles and sulci are normal in appearance for the patient`s age. The visualized portions of the orbits are normal in appearance. The osseous structures are normal in their appearance with no sign of abnormality in the skull base or calvarium. IMPRESSION: Normal unenhanced head CT. No interval change since April 08, [address] scans at this facility use dose modulation, iterative reconstruction, and/or weight-based dosing when appropriate to reduce radiation dose to as low as reasonably achievable. Dictated by Bryant Umana MD @ 07/31/2021 1:41:37 PM (Electronically Signed)
--- NOTE | 2021-07-31 13:52 | CR ---
INDICATION: Chest pain. COMPARISON: No prior chest radiograph TECHNIQUE: Single-view portable chest radiograph FINDINGS: TUBES AND LINES: None. HEART AND MEDIASTINUM: The heart size is normal. The mediastinal contour appears normal for patient age. LUNGS AND PLEURAL SPACES: No focal consolidation, infiltrate or mass. Mild vascular congestion without overt edema.The pleural spaces are unremarkable. OSSEOUS STRUCTURES: Age-appropriate appearance. No acute focal finding. IMPRESSION: Mild vascular congestion. No overt edema. No focal consolidation, infiltrate or mass. Dictated by Bryant Umana MD @ 07/31/2021 1:51:48 PM (Electronically Signed)
[2021-07-31] MEDS ORDERED: Enoxaparin 40 MG/0.4 ML Syringe SUBCUT SCH ×2 (16:30→20:00)
--- NOTE | 2021-07-31 16:41 | PCM.HP.2 ---
H&P History of Present Illness - General Date of Service: 07/31/21 Admit Problem/Dx: Admission Diagnosis/Problem Admission Diagnosis/Problem Syncope - History of Present Illness Initial Comments - Free Text/Narative: The patient is a 46-year-old male, on day 1 of service, who has a significant past medical history of prediabetes and sleep apnea, who was admitted to the medical floor due to syncope. This morning around 5:30 AM the patient took his dog for a walk, and started to sweat shortly afterwards before he was found by his neighbor on his lawn hunched over without any recollection to what happened. The patient could not remember the episode of him losing consciousness but he did wake up with a headache which just recently resolved. He denies any aura prior to losing consciousness, had no dizziness, biting of the tongue, bladder or bowel incontinence, shortness of breath, chest pain, p alpitations, slurred speech, numbness or tingling, or feelings of anxiety. With respect to his social history the patient has been smoking a half a pack of cigarettes for the past 6 years, he denies alcohol consumption and recreational drug use. His family history is noncontributory. 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 On CBC, his white blood cell count is 4.63, hemoglobin is 15.8, hematocrit is 45.5, and platelet count is 209. On CMP, sodium is 138, potassium is 4.3, chloride is 103, carbon dioxide 28.1, BUN is 18, creatinine is 0.9, troponin levels are normal at less than 0.050. On CT of the head, there is no mass lesions, hemorrhages, or edema, everything is normal On chest x-ray, there is mild vascular congestion, no consolidation or masses On EKG, normal sinus rhythm is seen In the emergency department, the patient received a normal saline bolus of 500 mL, was placed on a classroom monitor/telemetry, is having his pulse ox and vitals taken continuously, and had all the different imaging and tests noted above. The patient is a observation case and will be admitted. Headache Pain Score (Numeric/FACES): 8 - Related Data Allergies/Adverse Reactions: Allergies Allergy/AdvReac Type Severity Reaction Status Date / Time No Known Allergies Allergy Verified 07/31/21 12:24 Home Medications: Home Meds metFORMIN [Glucophage XR] 1,000 mg PO BID 04/17/21 [History] Past Medical History - Past Health History Medical/Surgical History: Denies Medical/Surgical History HEENT History: Reports: Other (See Below) Other HEENT History: wears glasses Cardiovascular History: Reports: None Respiratory History: Reports: Sleep Apnea Other Respiratory History: uses CPAP Gastrointestinal History: Reports: Pancreatitis Genitourinary History: Reports: None Musculoskeletal History: Reports: Arthritis Neurological History: Reports: None Psychiatric History: Reports: None Endocrine/Metabolic History: Reports: None Hematologic History: Reports: None Immunologic History: Reports: None Oncologic (Cancer) History: Reports: None Dermatologic History: Reports: None - Infectious Disease History Infectious Disease History: Reports: None - Past Surgical History Head Surgeries/Procedures: Reports: None HEENT Surgical History: Reports: None Cardiovascular Surgical History: Reports: None Respiratory Surgical History: Reports: None GI Surgical History: Reports: Cholecystectomy, Hernia, Inguinal Male Surgical History: Reports: None Endocrine Surgical History: Reports: None Neurological Surgical History: Reports: None Musculoskeletal Surgical History: Reports: None Oncologic Surgical History: Reports: None Dermatological Surgical History: Reports: None Social & Family History - Family History Family Medical History: No Pertinent Family History - Tobacco Use Tobacco Use Status *Q: Former Tobacco User Used Tobacco, but Quit: Yes Month/Year Tobacco Last Used: 03/2021 - Caffeine Use Caffeine Use: Reports: None - Recreational Drug Use Recreational Drug Use: No H&P Review of Systems - Review of Systems: Review Of Systems: See Below General: Denies: Fever, Chills, Fatigue HEENT: Reports: Headaches Pulmonary: Denies: Shortness of Breath, Pleuritic Chest Pain, Cough Cardiovascular: Denies: Chest Pain, Palpitations Gastrointestinal: Denies: Abdominal Pain Neurological: Reports: Syncope. Denies: Dizziness, Numbness Exam - Exam Exam: See Below - Vital Signs Vital Signs: Last Vital Signs Temp 97.9 F 07/31/21 12:25 Pulse 58 L 07/31/21 15:41 Resp 16 07/31/21 15:41 BP 132/78 07/31/21 15:41 Pulse Ox 98 07/31/21 15:41 Weight: 268 lb - Exam General: Alert, Oriented, Cooperative HEENT: Mucosa Moist & [place] Neck: Trachea Midline Lungs: Clear to Auscultation, Normal Respiratory Effort Cardiovascular: Regular Rate, Regular Rhythm GI/Abdominal Exam: Normal Bowel Sounds, Soft, Non-Tender Neurological: Normal Gait, Normal Speech, Sensation Intact Neuro Extensive - Mental Status: Alert, Oriented x3 - Patient Data Lab Results Last 24 hrs: Laboratory Results - last 24 hr 07/31/21 07/31/21 07/31/21 Range/Units 12:31 12:44 12:44 WBC 4.63 (4.0-11.0) K/uL RBC 5.39 (4.50-5.90) M/uL Hgb 15.8 (13.0-17.0) g/dL Hct 45.5 (38.0-50.0) % MCV 84.4 (80.0-98.0) fL MCH 29.3 (27.0-32.0) pg MCHC 34.7 (31.0-37.0) g/dL RDW Std Deviation 40.8 (28.0-62.0) fl RDW Coeff of Aram 13 (11.0-15.0) % Plt Count 209 (150-400) K/uL MPV 9.70 (7.40-12.00) fL Neut % (Auto) 38.9 L (48.0-80.0) % Lymph % (Auto) 45.1 H (16.0-40.0) % [place] % (Auto) 13.0 (0.0-15.0) % Eos % (Auto) 2.6 (0.0-7.0) % Baso % (Auto) 0.4 (0.0-1.5) % Neut # (Auto) 1.8 (1.4-5.7) K/uL Lymph # (Auto) 2.1 (0.6-2.4) K/uL [place] # (Auto) 0.6 (0.0-0.8) K/uL Eos # (Auto) 0.1 (0.0-0.7) K/uL Baso # (Auto) 0.0 (0.0-0.1) K/uL Nucleated RBC % 0.0 /100WBC Nucleated RBCs # 0 K/uL INR D-Dimer, Quantitative (0.0-0.50) mg/L FEU Sodium 138 (136-148) mmol/L Potassium 4.3 (3.5-5.1) mmol/L Chloride 103 (98-107) mmol/L Carbon Dioxide 28.1 (21.0-32.0) mmol/L BUN 18 (7.0-18.0) mg/dL Creatinine 0.9 (0.8-1.3) mg/dL Est Cr Clr Drug Dosing 125.91 mL/min Estimated GFR (MDRD) > 60.0 ml/min Glucose 130 H (74-106) mg/dL POC Glucose 127 H (70-99) mg/dL Calcium 8.4 L (8.5-10.1) mg/dL Total Bilirubin 0.4 (0.2-1.0) mg/dL AST 25 (15-37) IU/L ALT 68 H (14-63) IU/L Alkaline Phosphatase 47 (46-116) U/L Troponin I < 0.050 (0.000-0.056) ng/mL Total Protein 7.7 (6.4-8.2) g/dL Albumin 3.8 (3.4-5.0) g/dL Globulin 3.9 (2.6-4.0) g/dL Albumin/Globulin Ratio 1.0 (0.9-1.6) Lipase 316 (73-393) U/L SARS-CoV-2 RNA (LUCA) (NEGATIVE) 07/31/21 07/31/21 07/31/21 Range/Units 12:44 12:44 15:30 WBC (4.0-11.0) K/uL RBC (4.50-5.90) M/uL Hgb (13.0-17.0) g/dL Hct (38.0-50.0) % MCV (80.0-98.0) fL MCH (27.0-32.0) pg MCHC (31.0-37.0) g/dL RDW Std Deviation (28.0-62.0) fl RDW Coeff of Aram (11.0-15.0) % Plt Count (150-400) K/uL MPV (7.40-12.00) fL Neut % (Auto) (48.0-80.0) % Lymph % (Auto) (16.0-40.0) % [place] % (Auto) (0.0-15.0) % Eos % (Auto) (0.0-7.0) % Baso % (Auto) (0.0-1.5) % Neut # (Auto) (1.4-5.7) K/uL Lymph # (Auto) (0.6-2.4) K/uL [place] # (Auto) (0.0-0.8) K/uL Eos # (Auto) (0.0-0.7) K/uL Baso # (Auto) (0.0-0.1) K/uL Nucleated RBC % /100WBC Nucleated RBCs # K/uL INR 0.95 D-Dimer, Quantitative 0.19 (0.0-0.50) mg/L FEU Sodium (136-148) mmol/L Potassium (3.5-5.1) mmol/L Chloride (98-107) mmol/L Carbon Dioxide (21.0-32.0) mmol/L BUN (7.0-18.0) mg/dL Creatinine (0.8-1.3) mg/dL Est Cr Clr Drug Dosing mL/min Estimated GFR (MDRD) ml/min Glucose (74-106) mg/dL POC Glucose (70-99) mg/dL Calcium (8.5-10.1) mg/dL Total Bilirubin (0.2-1.0) mg/dL AST (15-37) IU/L ALT (14-63) IU/L Alkaline Phosphatase (46-116) U/L Troponin I (0.000-0.056) ng/mL Total Protein (6.4-8.2) g/dL Albumin (3.4-5.0) g/dL Globulin (2.6-4.0) g/dL Albumin/Globulin Ratio (0.9-1.6) Lipase (73-393) U/L SARS-CoV-2 RNA (LUCA) NEGATIVE (NEGATIVE) Result Diagrams: 07/31/21 12:44 07/31/21 12:44 Sepsis Event Note - Evaluation Sepsis Screening Result: No Definite Risk - Focused Exam Vital Signs: Vital Signs Temp Pulse Resp BP Pulse Ox 07/31/21 15:41 58 L 16 132/78 98 07/31/21 12:25 97.9 F 68 16 139/79 96 - Problem List (1) Syncope SNOMED Code(s): 758909800 ICD Code: R55 - SYNCOPE AND COLLAPSE Status: Acute Current Visit: Yes Problem List Initiated/Reviewed/Updated: Yes Orders Last 24hrs: Active Orders 24 hr Category Date Time Status Admission Status [Patient Status] [ADT] Stat ADT 07/31/21 15:36 Active Cardiac Monitoring [RC] . DIRECTED Care 07/31/21 12:50 Active Regular Diet [DIET] Diet 07/31/21 Dinner Ordered Echo Comp wo Cont [US] Routine Exams 07/31/21 16:28 Ordered CBC WITH AUTO DIFF [HEME] AM Lab 08/01/21 05:11 Ordered CBC WITH AUTO DIFF [HEME] AM Lab 08/02/21 05:11 Ordered CBC WITH AUTO DIFF [HEME] AM Lab 08/03/21 05:11 Ordered CMP [COMPREHENSIVE METABOLIC PN,CMP] [CHEM] AM Lab 08/01/21 05:11 Ordered CMP [COMPREHENSIVE METABOLIC PN,CMP] [CHEM] AM Lab 08/02/21 05:11 Ordered CMP [COMPREHENSIVE METABOLIC PN,CMP] [CHEM] AM Lab 08/03/21 05:11 Ordered Enoxaparin [Lovenox] Med 07/31/21 16:30 Ordered 40 mg SUBCUT Q24H Pantoprazole [ProTONIX] Med 08/01/21 09:00 Ordered 40 mg PO DAILY Sodium Chloride 0.9% [Saline Flush] Med 07/31/21 12:50 Active 10 ml FLUSH ASDIRECTED PRN Sodium Chloride 0.9% [Saline Flush] Med 07/31/21 12:50 Active 2.5 ml FLUSH ASDIRECTED PRN Saline Lock Insert [OM.PC] Stat Oth 07/31/21 12:50 Ordered Code Status [Resuscitation Status] Stat Resus Stat 07/31/21 16:26 Ordered Medication Orders Enoxaparin Sodium (Enoxaparin 40 Mg/0.4 Ml Syringe) 40 mg SUBCUT Q24H GRANT Pantoprazole Sodium (Pantoprazole 40 Mg Tab.Cr) 40 mg PO DAILY GRANT Sodium Chloride (Sodium Chloride 0.9% 10 Ml Syringe) 10 ml FLUSH ASDIRECTED PRN PRN Reason: Keep Vein Open Last Admin: 07/31/21 13:17 Dose: 10 ml Documented by: BRADJAI Sodium Chloride (Sodium Chloride 0.9% 2.5 Ml Syringe) 2.5 ml FLUSH ASDIRECTED PRN PRN Reason: Keep Vein Open Last Admin: 07/31/21 13:18 Dose: 2.5 ml Documented by: FRED Assessment/Plan Comment:: Admit the patient to the medical floor, vitals per unit routine, activity up ad royce., DVT prophylaxis with Lovenox 40 mg subcutaneously once a day, GI prophylaxis with pantoprazole 40 mg per IV route once a day, regular diet, patient is full code 1. Syncope -The patient is on telemetry/classroom monitor to assess his heart's electrical function -An echocardiogram has been ordered to evaluate the heart structures and if they contributed to his loss of consciousness -Daily CMP will be ordered to see if dehydration is the cause of his syncope -We will continue to monitor his clinical status and treat accordingly 2. Prediabetes -Continue the patient on his home Metformin dosage
[2021-07-31] MEDS ORDERED: 50% Dextrose in Water 50 ML Syringe IVPUSH PRN (18:05)
[2021-07-31] MEDS ORDERED: Glucagon,Human Recombinant 1 MG Vial IM PRN (18:05)
[2021-07-31] MEDS: Insulin Aspart 100 Units/ML 3 ML Pen SUBCUT SCH (19:59)
[2021-07-31] MEDS ORDERED: metFORMIN 500 MG Tab.ER PO SCH (21:00)
--- NOTE | 2021-08-01 08:35 | MR ---
Indication: SYNCOPE, WAS SEEN IN ER AND WAS ADMITTED TO MED/SURG Technique: 3D [id number] MR angiogram of the [id number] with 3-dimensional MIP projections were submitted. Comparison: MRI 01/31/2016 Findings: The visualized first and second order intracranial vessels are unremarkable. No occlusion/filling defect or acquired arterial stenosis identified. No aneurysm or vascular malformation seen. Impression: No evidence of proximal arterial occlusion, aneurysm, dissection, or vascular malformation. Dictated by Rayshawn Goldman MD @ 08/01/2021 8:47:35 AM (Electronically Signed)
[2021-08-01] MEDS ORDERED: Pantoprazole 40 MG Tab.CR PO SCH (09:00)
[2021-08-01 09:15] VITALS: BP 126/75; PULSE 67
[2021-08-01] MEDS: Insulin Aspart 100 Units/ML 3 ML Pen SUBCUT SCH ×2 (09:31→09:40)
--- NOTE | 2021-08-01 10:55 | PCM.DCSUM1 ---
Discharge Summary - Hospital Course Free Text/Narrative:: The patient is a 46-year-old male, on day 2 of service, who has a significant past medical history of prediabetes and sleep apnea, who was admitted to the medical floor due to syncope. Upon interview with the patient today, his symptoms have completely resolved, he has no dizziness, headache, tingling, numbness, slurred speech, chest pain, or palpitations. An MRI of the head revealed no abnormalities and he also had an echocardiogram with the r esults pending. He was on telemetry throughout his hospital course for the past 24 hours and no abnormalities were seen besides a few PVCs. The patient is a pre-diabetic who takes Metformin at home, at the hospital he was on insulin sliding scale with NovoLog. He has been advised on discharge to be compliant with his medication, and to adopt lifestyle modifications including exercise and a nutritious diet. He has been educated on returning to the hospital if he has any syncopal episodes, palpitations, chest pain, or strokelike symptoms. He has been counselled to follow-up with his PCP in 1 to 2 weeks time. - Discharge Data Discharge Date: 08/01/21 Discharge Disposition: Home, Self-Care 01 Condition: Fair - Referral to Home Health Primary Care Physician: Michael Hernandez MD - Discharge Diagnosis/Problem(s) (1) Syncope SNOMED Code(s): 624593635 ICD Code: R55 - SYNCOPE AND COLLAPSE Status: Acute Current Visit: Yes - Patient Instructions Diet: Diabetic Diet Activity: As Tolerated Showering/Bathing: May Shower Other/Special Instructions: -Come back to the hospital if you experience slurred speech, tingling, numbness, chest pain, palpitations, or any additional syncopal episodes. -Be compliant with your medications and take them at scheduled times. -Follow-up with your PCP in 1 to 2 weeks time. -You are being sent home with Zio patch, follow instructions and mail it in when completed - Discharge Plan Home Medications: Home Meds metFORMIN [Glucophage XR] 1,000 mg PO BID 04/17/21 [History] Patient Handouts: Syncope, [id number] Referrals: Michael Hernandez MD [Primary Care Provider] - 08/08/21 3:30 pm (Please arrive 15 minutes before appointment time. Please wear mask. Bring photo ID and ins urance.) - Discharge Summary/Plan Comment DC Time >30 min.: Yes Total # of Minutes for Discharge Time: 35 minutes - Review of Systems General: Denies: Fever, Fatigue HEENT: Denies: Headaches, Sore Throat Pulmonary: Denies: Shortness of Breath, Cough Cardiovascular: Denies: Chest Pain, Palpitations Gastrointestinal: Denies: Abdominal Pain Genitourinary: Denies: Dysuria Musculoskeletal: Denies: Neck Pain Neurological: Denies: Confusion, Dizziness, Numbness, Paresthesia, Trouble Speaking - Patient Data Vitals - Most Recent: Last Vital Signs Temp 97.7 F 08/01/21 08:00 Pulse 67 08/01/21 08:00 Resp 18 08/01/21 08:00 BP 126/75 08/01/21 08:00 Pulse Ox 98 08/01/21 08:00 Weight - Most Recent: 291 lb 6.4 oz I&O - Last 24 hours: Intake & Output 07/31/21 08/01/21 08/01/21 22:59 06:59 14:59 Intake Total 400 Output Total 0 Balance 400 Lab Results - Last 24 hrs: Laboratory Results - last 24 hr 07/31/21 07/31/21 07/31/21 Range/Units 12:31 12:44 12:44 WBC 4.63 (4.0-11.0) K/uL RBC 5.39 (4.50-5.90) M/uL Hgb 15.8 (13.0-17.0) g/dL Hct 45.5 (38.0-50.0) % MCV 84.4 (80.0-98.0) fL MCH 29.3 (27.0-32.0) pg MCHC 34.7 (31.0-37.0) g/dL RDW Std Deviation 40.8 (28.0-62.0) fl RDW Coeff of Aram 13 (11.0-15.0) % Plt Count 209 (150-400) K/uL MPV 9.70 (7.40-12.00) fL Neut % (Auto) 38.9 L (48.0-80.0) % Lymph % (Auto) 45.1 H (16.0-40.0) % [place] % (Auto) 13.0 (0.0-15.0) % Eos % (Auto) 2.6 (0.0-7.0) % Baso % (Auto) 0.4 (0.0-1.5) % Neut # (Auto) 1.8 (1.4-5.7) K/uL Lymph # (Auto) 2.1 (0.6-2.4) K/uL [place] # (Auto) 0.6 (0.0-0.8) K/uL Eos # (Auto) 0.1 (0.0-0.7) K/uL Baso # (Auto) 0.0 (0.0-0.1) K/uL Nucleated RBC % 0.0 /100WBC Nucleated RBCs # 0 K/uL INR D-Dimer, Quantitative (0.0-0.50) mg/L FEU Sodium 138 (136-148) mmol/L Potassium 4.3 (3.5-5.1) mmol/L Chloride 103 (98-107) mmol/L Carbon Dioxide 28.1 (21.0-32.0) mmol/L BUN 18 (7.0-18.0) mg/dL Creatinine 0.9 (0.8-1.3) mg/dL Est Cr Clr Drug Dosing 125.91 mL/min Estimated GFR (MDRD) > 60.0 ml/min Glucose 130 H (74-106) mg/dL POC Glucose 127 H (70-99) mg/dL Calcium 8.4 L (8.5-10.1) mg/dL Total Bilirubin 0.4 (0.2-1.0) mg/dL AST 25 (15-37) IU/L ALT 68 H (14-63) IU/L Alkaline Phosphatase 47 (46-116) U/L Troponin I < 0.050 (0.000-0.056) ng/mL Total Protein 7.7 (6.4-8.2) g/dL Albumin 3.8 (3.4-5.0) g/dL Globulin 3.9 (2.6-4.0) g/dL Albumin/Globulin Ratio 1.0 (0.9-1.6) Lipase 316 (73-393) U/L SARS-CoV-2 RNA (LUCA) (NEGATIVE) 11/08/21 11/08/21 11/08/21 Range/Units 12:44 12:44 15:30 WBC (4.0-11.0) K/uL RBC (4.50-5.90) M/uL Hgb (13.0-17.0) g/dL Hct (38.0-50.0) % MCV (80.0-98.0) fL MCH (27.0-32.0) pg MCHC (31.0-37.0) g/dL RDW Std Deviation (28.0-62.0) fl RDW Coeff of Aram (11.0-15.0) % Plt Count (150-400) K/uL MPV (7.40-12.00) fL Neut % (Auto) (48.0-80.0) % Lymph % (Auto) (16.0-40.0) % [place] % (Auto) (0.0-15.0) % Eos % (Auto) (0.0-7.0) % Baso % (Auto) (0.0-1.5) % Neut # (Auto) (1.4-5.7) K/uL Lymph # (Auto) (0.6-2.4) K/uL [place] # (Auto) (0.0-0.8) K/uL Eos # (Auto) (0.0-0.7) K/uL Baso # (Auto) (0.0-0.1) K/uL Nucleated RBC % /100WBC Nucleated RBCs # K/uL INR 0.95 D-Dimer, Quantitative 0.19 (0.0-0.50) mg/L FEU Sodium (136-148) mmol/L Potassium (3.5-5.1) mmol/L Chloride (98-107) mmol/L Carbon Dioxide (21.0-32.0) mmol/L BUN (7.0-18.0) mg/dL Creatinine (0.8-1.3) mg/dL Est Cr Clr Drug Dosing mL/min Estimated GFR (MDRD) ml/min Glucose (74-106) mg/dL POC Glucose (70-99) mg/dL Calcium (8.5-10.1) mg/dL Total Bilirubin (0.2-1.0) mg/dL AST (15-37) IU/L ALT (14-63) IU/L Alkaline Phosphatase (46-116) U/L Troponin I (0.000-0.056) ng/mL Total Protein (6.4-8.2) g/dL Albumin (3.4-5.0) g/dL Globulin (2.6-4.0) g/dL Albumin/Globulin Ratio (0.9-1.6) Lipase (73-393) U/L SARS-CoV-2 RNA (LUCA) NEGATIVE (NEGATIVE) 07/31/21 07/31/21 08/01/21 Range/Units 17:13 23:08 06:10 WBC 4.44 (4.0-11.0) K/uL RBC 5.05 (4.50-5.90) M/uL Hgb 14.5 (13.0-17.0) g/dL Hct 42.7 (38.0-50.0) % MCV 84.6 (80.0-98.0) fL MCH 28.7 (27.0-32.0) pg MCHC 34.0 (31.0-37.0) g/dL RDW Std Deviation 40.8 (28.0-62.0) fl RDW Coeff of Aram 13 (11.0-15.0) % Plt Count 190 (150-400) K/uL MPV 9.60 (7.40-12.00) fL Neut % (Auto) 35.4 L (48.0-80.0) % Lymph % (Auto) 48.4 H (16.0-40.0) % [place] % (Auto) 11.9 (0.0-15.0) % Eos % (Auto) 3.8 (0.0-7.0) % Baso % (Auto) 0.5 (0.0-1.5) % Neut # (Auto) 1.6 (1.4-5.7) K/uL Lymph # (Auto) 2.2 (0.6-2.4) K/uL [place] # (Auto) 0.5 (0.0-0.8) K/uL Eos # (Auto) 0.2 (0.0-0.7) K/uL Baso # (Auto) 0.0 (0.0-0.1) K/uL Nucleated RBC % 0.0 /100WBC Nucleated RBCs # 0 K/uL INR D-Dimer, Quantitative (0.0-0.50) mg/L FEU Sodium (136-148) mmol/L Potassium (3.5-5.1) mmol/L Chloride (98-107) mmol/L Carbon Dioxide (21.0-32.0) mmol/L BUN (7.0-18.0) mg/dL Creatinine (0.8-1.3) mg/dL Est Cr Clr Drug Dosing mL/min Estimated GFR (MDRD) ml/min Glucose (74-106) mg/dL POC Glucose (70-99) mg/dL Calcium (8.5-10.1) mg/dL Total Bilirubin (0.2-1.0) mg/dL AST (15-37) IU/L ALT (14-63) IU/L Alkaline Phosphatase (46-116) U/L Troponin I < 0.050 < 0.050 (0.000-0.056) ng/mL Total Protein (6.4-8.2) g/dL Albumin (3.4-5.0) g/dL Globulin (2.6-4.0) g/dL Albumin/Globulin Ratio (0.9-1.6) Lipase (73-393) U/L SARS-CoV-2 RNA (LUCA) (NEGATIVE) 08/01/21 Range/Units 06:28 WBC (4.0-11.0) K/uL RBC (4.50-5.90) M/uL Hgb (13.0-17.0) g/dL Hct (38.0-50.0) % MCV (80.0-98.0) fL MCH (27.0-32.0) pg MCHC (31.0-37.0) g/dL RDW Std Deviation (28.0-62.0) fl RDW Coeff of Arma (11.0-15.0) % Plt Count (150-400) K/uL MPV (7.40-12.00) fL Neut % (Auto) (48.0-80.0) % Lymph % (Auto) (16.0-40.0) % [place] % (Auto) (0.0-15.0) % Eos % (Auto) (0.0-7.0) % Baso % (Auto) (0.0-1.5) % Neut # (Auto) (1.4-5.7) K/uL Lymph # (Auto) (0.6-2.4) K/uL [place] # (Auto) (0.0-0.8) K/uL Eos # (Auto) (0.0-0.7) K/uL Baso # (Auto) (0.0-0.1) K/uL Nucleated RBC % /100WBC Nucleated RBCs # K/uL INR D-Dimer, Quantitative (0.0-0.50) mg/L FEU Sodium (136-148) mmol/L Potassium (3.5-5.1) mmol/L Chloride (98-107) mmol/L Carbon Dioxide (21.0-32.0) mmol/L BUN (7.0-18.0) mg/dL Creatinine (0.8-1.3) mg/dL Est Cr Clr Drug Dosing mL/min Estimated GFR (MDRD) ml/min Glucose (74-106) mg/dL POC Glucose 133 H (70-99) mg/dL Calcium (8.5-10.1) mg/dL Total Bilirubin (0.2-1.0) mg/dL AST (15-37) IU/L ALT (14-63) IU/L Alkaline Phosphatase (46-116) U/L Troponin I (0.000-0.056) ng/mL Total Protein (6.4-8.2) g/dL Albumin (3.4-5.0) g/dL Globulin (2.6-4.0) g/dL Albumin/Globulin Ratio (0.9-1.6) Lipase (73-393) U/L SARS-CoV-2 RNA (LUCA) (NEGATIVE) Med Orders - Current: Current Medications Dextrose/Water (50% Dextrose In Water 50 Ml Syringe) 50 ml IVPUSH ASDIRECTED PRN PRN Reason: Hypoglycemia Enoxaparin Sodium (Enoxaparin 40 Mg/0.4 Ml Syringe) 40 mg SUBCUT Q24H [facility] Last Admin: 07/31/21 22:19 Dose: 40 mg Documented by: Glucagon (Glucagon,Human Recombinant 1 Mg Vial) 1 mg IM ASDIRECTED PRN PRN Reason: Hypoglycemia Insulin Aspart (Insulin Aspart 100 Units/Ml 3 Ml Pen) 0 unit SUBCUT TIDAC [facility]; Protocol Last Admin: 08/01/21 09:40 Dose: Not Given Documented by: Pantoprazole Sodium (Pantoprazole 40 Mg Tab.Cr) 40 mg PO DAILY [facility] Last Admin: 08/01/21 09:32 Dose: 40 mg Documented by: Sodium Chloride (Sodium Chloride 0.9% 10 Ml Syringe) 10 ml FLUSH ASDIRECTED PRN PRN Reason: Keep Vein Open Last Admin: 07/31/21 13:17 Dose: 10 ml Documented by: Sodium Chloride (Sodium Chloride 0.9% 2.5 Ml Syringe) 2.5 ml FLUSH ASDIRECTED PRN PRN Reason: Keep Vein Open Last Admin: 07/31/21 13:18 Dose: 2.5 ml Documented by: Discontinued Medications Enoxaparin Sodium (Enoxaparin 40 Mg/0.4 Ml Syringe) 40 mg SUBCUT Q24H [facility] Last Admin: 08/01/21 02:00 Dose: Not Given Documented by: Sodium Chloride (Normal Saline) 500 mls @ 999 mls/hr IV .BOLUS ONE Stop: 07/31/21 13:20 Last Admin: 07/31/21 13:17 Dose: 999 mls/hr Documented by: Metformin HCl (Metformin 500 Mg Tab.Er) 1,000 mg PO BID GRANT - Exam General: Reports: Alert, Oriented, Cooperative HEENT: Reports: Mucous Membr. Moist/[place] Neck: Reports: Trachea Midline Lungs: Reports: Clear to Auscultation, Normal Respiratory Effort Cardiovascular: Reports: Regular Rate, Regular Rhythm GI/Abdominal Exam: Normal Bowel Sounds, Soft, Non-Tender Neurological: Reports: Normal Speech, Sensation Intact
[2021-08-01 11:02] LABS: BLOOD UREA NITROGEN,BUN 15 mg/dL (7.0-18.0); CARBON DIOXIDE,CO2 27.4 mmol/L (21.0-32.0); CHLORIDE,CL 103 mmol/L (98-107); GLUCOSE RANDOM 148 mg/dL (74-106); POTASSIUM,K 4.3 mmol/L (3.5-5.1); SODIUM,NA 140 mmol/L (136-148)
--- NOTE | 2021-08-03 14:13 | ECHO ---
EXAM DATE: 07/31/21 PATIENT'S AGE: 46 The ECHO report has been scanned into [employer] and can be seen in this patient's EMR (Electronic Medical Record) under the REPORTS section. The report has also been scanned into PACS. JEANNE
== END 2021-08-01 11:30 | disposition home or self-care (01) ==
LOC: MW.ED 12:15 → MW.MS 15:36
PROVIDERS: ADMIT Student in an Organized Health Care Education/Training Program; ATTEND Student in an Organized Health Care Education/Training Program
DX: R55 Syncope and collapse (principal); G47.30 Sleep apnea, unspecified; R73.03 Prediabetes; Z87.891 Personal history of nicotine dependence; Z90.49 Acquired absence of other specified parts of digestive tract; Z98.890 Other specified postprocedural states; Z20.822 Contact with and (suspected) exposure to COVID-19
CPT/HCPCS: 36415; 70450; 70544; 71045; 80048; 80053; 82947; 83690; 84484; 85025; 85379; 85610; 87635; 93005; 93306; 94660; 99285; A9270; J1650; J1815; J7030; U0002

== ENCOUNTER 2022-03-26 13:52 | Emergency (ER) | payer MEDICAID ==
[2022-03-26] MEDS ORDERED: Ibuprofen 600 MG Tab PO ONE (14:16)
[2022-03-26] MEDS ORDERED: Ondansetron 4 MG Tab.DIS PO ONE (14:18)
[2022-03-26 16:01] VITALS: BP 128/78; PULSE 78
== END 2022-03-26 15:59 | disposition home or self-care (01) ==
LOC: MW.ED 13:52
DX: U07.1 COVID-19 (principal)
CPT/HCPCS: 87070; 87635; 87880; 99284; A9270; 99283; U0002